=== PATIENT | male | born 1955 | race Caucasian/White ===

== ENCOUNTER 2022-12-12 06:34 | Day surgery (SDC) | payer MEDICARE, BC ==
[2022-12-12] VITALS (32 sets, daily range): BP systolic 151–208; BP diastolic 80–115; PULSE 60–84; RESP 8–21; TEMP 97.9; O2SAT 87–100
[~2022-12-12] VITALS: Ht 190.5 cm; Wt 109.4 kg
[~2022-12-12 06:34] MED LIST: ALBU18HF2; ATOR20TA66 PO; BUDE10.7 INH; DOCUMENT DATE & TIME OF BETA-BLOCKER PO ONE; DULO-31 PO; GABA300C PO; LOSA25TA41 PO; METO-467 PO; MONT-40 PO; TIZA-189 PO; TRAZ-256 PO; famotidine 20mg tablet PO ONE; oxymetazoline 15 ML nasal spray NS ONE; ringers solution, lacted 1,000 ML IV SCH; tranexamic acid inj. 1,000 MG in normal saline IV soln 100ML IV ONE
[2022-12-12] MEDS ORDERED: cocaine 4% topical solution 4ml bottle ONE (07:13)
[2022-12-12] MEDS ORDERED: epiNEPHrine 1 mg/ml 30ml MDV ONE (07:13)
[2022-12-12] MEDS ORDERED: LIDOcaine 1% w/EPI 1:100,000 inj. MDV 50 ML VIAL ONE (07:13)
[2022-12-12] MEDS ORDERED: tranexamic acid 100mg/ml inj. ONE (07:13)
[2022-12-12] MEDS ORDERED: mupirocin 2% ointment 22GM ONE (07:14)
[2022-12-12] MEDS ORDERED: oxymetazoline 15 ML nasal spray NS ONE ×2 (07:40→08:53)
[2022-12-12] MEDS ORDERED: midazolam 1 mg/ML 2ml injection ONE (08:02)
[2022-12-12] MEDS ORDERED: fentaNYL/PF 50MCG/1 ML 2ML syringe ONE (08:02)
[2022-12-12] MEDS ORDERED: propofol inj 20 ML IV ONE (08:02)
[2022-12-12] MEDS ORDERED: meperidine/PF 25mg/ml syringe IV PRN ×2 (08:15)
[2022-12-12] MEDS ORDERED: morphine 4 MG/ML inj SYRINge IV PRN (08:15)
[2022-12-12] MEDS ORDERED: proCHLORperazine 10 MG/2 ml inj IV PRN (08:15)
[2022-12-12] MEDS ORDERED: morphine 2 MG/ML inj. syringe IV PRN (08:15)
[2022-12-12] MEDS ORDERED: ondansetron/PF 4mg/2ml inj IV PRN (08:15)
[2022-12-12] MEDS ORDERED: ringers solution, lacted 1,000 ML IV SCH (08:15)
[2022-12-12] MEDS ORDERED: sevoflurane 250ml liquid IH ONE (08:16)
[2022-12-12] MEDS ORDERED: triamcinolone acetonide 40mg/ml inj ONE (08:26)
[2022-12-12] MEDS ORDERED: ceFAZolin 1000mg inj ONE ×2 (08:38)
[2022-12-12] MEDS ORDERED: dexamethasone sod phosphate 4mg/ml inj. ONE (08:38)
[2022-12-12] MEDS ORDERED: cocaine 4% topical solution 4ml bottle TP ONE (08:52)
[2022-12-12] MEDS ORDERED: LIDOcaine 1% w/EPI 1:100,000 30ml vial (MDV) IJ ONE (08:54)
[2022-12-12] MEDS ORDERED: triamcinolone acetonide 40mg/ml inj IM ONE (08:54)
[2022-12-12] MEDS ORDERED: mupirocin 2% cream 15gm TP ONE (08:55)
[2022-12-12] MEDS ORDERED: epiNEPHrine 1 mg/ml 30ml MDV ENDO ONE (09:07)
[2022-12-12] MEDS ORDERED: labetalol 20mg/4ml (5mg/ml) syringe IV ONE (09:46)
[2022-12-12] MEDS ORDERED: ondansetron/PF 4mg/2ml inj ONE (09:49)
--- NOTE | 2022-12-12 10:22 | NUR ---
Received from OR via thomas, accompanied by Anesthesiologist DR CASTRO and report given by Anesthesiologist. PATIENT WAKING UP, DENIES PAIN, ELEVATED BP, MD AWARE, 20G PIV TO RIGHT WRIST, BILATERAL COTTONOID DRESSING C/D/I. Addendum: 12/12/22 at 1117 by Dorie Chavez RN Amended: Links added.
[2022-12-12] MEDS: meperidine/PF 25mg/ml syringe IV PRN ×2 (10:30→12:28)
[2022-12-12] MEDS: labetalol 20mg/4ml (5mg/ml) syringe IV PRN ×2 (10:41→10:58)
[2022-12-12] MEDS ORDERED: salt irrigation nasal spray 45 ML SPRAY NS PRN (11:00)
[2022-12-12] MEDS: hydrALAZINE 20mg/ml inj. IV PRN ×4 (11:07→12:10)
--- NOTE | 2022-12-12 12:00 | NUR ---
DC'D BILATERAL COTTONOID NASAL DRSG . NO S/S OF BLEEDING. PT TOLERATED WELL. APPLIED GAUZE AND NASAL DRESSING BAÑUELOS. WILL CONTINUE TO MONITOR Addendum: 12/12/22 at 1311 by Dorie Chavez RN Amended: Links added.
--- NOTE | 2022-12-12 12:52 | NUR ---
PT UP AND DRESSED, ABLE TO VOID, VSS, DENIES ANY PAIN, PIV D/CD, DISCUSSED HOME CARE FOR NASAL IRRIGATION AND MEDICATIONS, PT USED OCEAN SPRAY AND OINTMENT BEFORE LEAVING, ALL QUESTIONS ANSWERED, FRESH GAUZE PLACE UNDER NOSE, PT TAKEN WITH SUPPLIES AND BELONGINGS TO VEHICLE, TRANSPORTED BY [employer] SERVICE W/ SIGNIFICANT OTHER. Addendum: 12/12/22 at 1321 by Dorie Chavez RN Amended: Links added.
== END 2022-12-12 12:52 | disposition home or self-care (01) ==
LOC: PAS 06:34
PROVIDERS: ATTEND Otolaryngology
DX: J32.8 Other chronic sinusitis (principal); J34.3 Hypertrophy of nasal turbinates; J44.9 Chronic obstructive pulmonary disease, unspecified; G47.30 Sleep apnea, unspecified; Z79.899 Other long term (current) drug therapy
CPT/HCPCS: 31253; 31259; 31267; 61782; 82948; A6402; J0171; J0360; J0690; J1100; J2175; J2250; J2270; J2405; J2704; J3010; J3301; J3490; J7030; J7050; J7120; Z7506; Z7508; Z7512; 88304; 88311; A4618; A6449; A7000